=== PATIENT | male | born 1990 | race Caucasian/White ===

== ENCOUNTER 2017-12-27 03:54 | Emergency (ER) | payer SELFPAY ==
[~2017-12-27] VITALS: Ht 185.4 cm; Wt 75.0 kg
[2017-12-27 04:01] VITALS: BP 129/61; PULSE 90; RESP 16; TEMP 97.7; O2SAT 97
[2017-12-27] MEDS ORDERED: ADDE20XR PO (04:04)
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
== END 2017-12-27 11:34 | disposition left against medical advice (07) ==
LOC: NEPC 03:54 → NEPF 11:34
DX: T76.21XA Adult sexual abuse, suspected, initial encounter (principal)
CPT/HCPCS: 99281